=== PATIENT | female | born 1980 | race African-American/Black ===

== ENCOUNTER 2019-02-12 16:41 | Emergency (ER) | payer SELFPAY ==
[~2019-02-12] VITALS: Ht 167.6 cm; Wt 68.0 kg
[2019-02-13 05:56] VITALS: BP 157/90
== END 2019-02-13 06:07 | disposition home or self-care (01) ==
LOC: ER 16:41
DX: R51 Headache (principal); F20.9 Schizophrenia, unspecified; Y08.89XA Assault by other specified means, initial encounter; Y93.89 Activity, other specified; Y92.048 Other place in boarding-house as the place of occurrence of the external cause
CPT/HCPCS: 99283